=== PATIENT | female | born 1965 | race Caucasian/White ===

== ENCOUNTER 2024-04-27 09:08 | Outpatient (CLI) | payer BC, OTHER | END 2024-04-27 23:59 | disposition home or self-care (01) | LOC: RAD 09:08 | PROVIDERS: ATTEND Family Medicine | DX: R10.11 Right upper quadrant pain (principal) | CPT/HCPCS: 76700 ==

== ENCOUNTER 2024-08-01 07:41 | Outpatient (CLI) | payer BC | END 2024-08-01 23:59 | disposition home or self-care (01) | LOC: LAB 07:41 | PROVIDERS: ATTEND Nurse Practitioner Family | DX: E11.65 Type 2 diabetes mellitus with hyperglycemia (principal) | CPT/HCPCS: 36415; 83036 ==

== ENCOUNTER 2024-10-26 08:00 | Outpatient (CLI) | payer BC | END 2024-10-26 23:59 | disposition home or self-care (01) | LOC: LAB 08:00 | PROVIDERS: ATTEND Nurse Practitioner Family | DX: E11.65 Type 2 diabetes mellitus with hyperglycemia (principal) | CPT/HCPCS: 36415; 83036 ==

== ENCOUNTER 2025-01-28 12:42 | Outpatient (CLI) | payer BC ==
--- NOTE | 2025-01-28 14:11 | RADIOLOGY REPORT ---
EXAM: MR MRI LOWER EXTREMITY RIGHT ankle INDICATION: PAIN IN RIGHT ankle TECHNIQUE: Multiplanar and multisequence MR imaging of the right ankle was performed in the absence o f gadolinium contrast. COMPARISON: None FINDINGS: On sagittal images the Achilles tendon is thickened. There is a screw hole in the posterior os calcis at its insertion point. The plantar fascia is intact. There is no joint effusion. The sin us tarsus is unremarkable On coronal images articular surfaces of the tibiotalar joint are smooth. Deltoid ligament intact. Sp ring ligament intact. Calcaneofibular ligament intact. On transaxial views distal syndesmotic ligaments intact. Increased signal of the posterior talofibula r ligament. Attenuation of the anterior talofibular ligament. Posterior tibialis flexor digitorum and flexor hallucis longus tendons intact. Peroneal tendons intact IMPRESSION: 1. There has been surgical repair and anchoring of the distal achilles tendon without evidence of re- tear. 2. Partial tears of the anterior posterior talofibular ligaments probably old 3. tenosynovitis of the posterior tibialis tendon in the midfoot
== END 2025-01-28 23:59 | disposition home or self-care (01) ==
LOC: MRI 12:42
PROVIDERS: ATTEND Podiatrist Foot & Ankle Surgery
DX: S93.491A Sprain of other ligament of right ankle, initial encounter (principal); M79.671 Pain in right foot; X58.XXXA Exposure to other specified factors, initial encounter; Y93.89 Activity, other specified; Y92.89 Other specified places as the place of occurrence of the external cause; Y99.8 Other external cause status
CPT/HCPCS: 73721

== ENCOUNTER 2025-04-17 08:21 | Outpatient (CLI) | payer BC ==
[2025-04-17 08:46] LABS: MEAN PLATELET VOLUME 8.6 FL (7.4-10.4); RED CELL DISTRIBUTION WIDTH 14.3 % (11.5-14.5)
[2025-04-17 09:08] LABS: CHOL/HDL RATIO 3.1 (0.00-4.99); CREATININE 0.71 MG/DL (0.40-0.90); LDL CHOLESTEROL 57 MG/DL (50-100); TOTAL CARBON DIOXIDE 29.8 MMOL/L (24-32); eGFR 83 ML/MIN
[2025-04-18 09:12] LABS: VITAMIN D, 25-HYDROXY 90.5 ng/mL (30.0-100.0)
[2025-04-18 13:13] LABS: CREATININE, URINE 248.0 mg/dL (Not Estab.); MICROALB/CRT, RATIO 7.0 mg/g creat (0-29); MICROALBUMIN,U,RANDOM 18.5 ug/mL (Not Estab.)
== END 2025-04-17 23:59 | disposition home or self-care (01) ==
LOC: LAB 08:21
PROVIDERS: ATTEND Nurse Practitioner Family
DX: Z00.01 Encounter for general adult medical examination with abnormal findings (principal); R68.89 Other general symptoms and signs; R79.89 Other specified abnormal findings of blood chemistry; E55.9 Vitamin D deficiency, unspecified; R94.6 Abnormal results of thyroid function studies; R80.9 Proteinuria, unspecified; R73.01 Impaired fasting glucose; R94.5 Abnormal results of liver function studies
CPT/HCPCS: 36415; 80053; 80061; 82043; 82306; 82570; 83036; 84443; 85025